=== PATIENT | female | born 1990 ===

== ENCOUNTER 2017-04-14 14:50 | Inpatient (IN) | payer BC, OTHER ==
[2017-04-14 14:50] VITALS: BMI 29.2
[2017-04-14] MEDS ORDERED: Sodium Chloride 0.9% 500 ML IV STA (15:39)
--- NOTE | 2017-04-14 15:49 | ED PDOC ---
HPI: Female Pain Time Seen by Provider: 04/14/17 15:02 Chief Complaint (Nursing): Abdominal Pain Chief Complaint (Provider): pelvic pain History Per: Patient Onset/Duration Of Symptoms: Days (3), Persistent Severity: Severe Associated Symptoms: Nausea. denies: Fever, Chills, Vomiting, Diarrhea, Loss Of Appetite, Urinary Symptoms Additional Complaint(s): Severe pelvic pain no relief with percocet at home Seen in another ER and diagnosed with ovarian cyst Seen by Se[employer]er today and advised to go to ER for further evaluation. 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 Past Medical History Reviewed: Historical Data, Nursing Documentation, Vital Signs Vital Signs: Last Vital Signs Temp 97.0 F L 04/14/17 14:55 Pulse 69 04/14/17 14:55 Resp 18 04/14/17 14:55 BP 117/70 04/14/17 14:55 Pulse Ox 99 04/14/17 14:55 - Medical History PMH: Denies: Anxiety, Bipolar Disorder, Depression, Paranoia, Post Traumatic Stress Disorder, Schizophrenia - Surgical History Surgical History: Tonsillectomy Other surgeries: Ovarian cyst - Family History Family History: States: No Known Family Hx - Social History Current smoker - smoking cessation education provided: No - Home Medications Home Medications: Ambulatory Orders Medication Instructions Recorded Cyanocobalamin [Vitamin B12 1000 1 tab PO DAILY 04/14/17 mcg Tab] Lactobacillus Combination No.8 1 cap PO DAILY 04/14/17 [Adult Probiotic] Norethindrone-E.estradiol-Iron 1 tab PO DAILY 04/14/17 [Mibelas 24 Fe Chewable Tablet] Ondansetron [Zofran Tab] 4 mg PO Q8H PRN 04/14/17 oxyCODONE/Acetaminophen [Percocet 1 tab PO Q6H PRN 04/14/17 5/325 mg Tab] - Allergies Allergies/Adverse Reactions: Allergies Allergy/AdvReac Type Severity Reaction Status Date / Time No Known Allergies Allergy Verified 02/05/15 13:43 Review of Systems ROS Statement: Except As Marked, All Systems Reviewed And Found Negative (and as per HPI) Gastrointestinal: Positive for: Nausea, Abdominal Pain Genitourinary Female: Positive for: Pelvic Pain. Negative for: Dysuria, Frequency Physical Exam - Reviewed Nursing Documentation Reviewed: Yes Vital Signs Reviewed: Yes - Physical Exam Appears: Positive for: Non-toxic, In Acute Distress Head Exam: Positive for: ATRAUMATIC, NORMOCEPHALIC Skin: Positive for: Warm, Dry Eye Exam: Positive for: EOMI, PERRL ENT: Positive for: Other (tacky muc membranes) Neck: Positive for: Painless ROM, Supple Cardiovascular/Chest: Positive for: Regular Rate, Rhythm, Chest Non Tender. Negative for: Murmur Respiratory: Positive for: Normal Breath Sounds. Negative for: Respiratory Distress Gastrointestinal/Abdominal: Positive for: Soft, Tenderness. Negative for: Distended, Guarding, Rebound Back: Positive for: Normal Inspection. Negative for: Vertebral Tenderness Extremity: Positive for: Normal ROM. Negative for: Deformity Lymphatic: Negative for: Adenopathy Neurologic/Psych: Positive for: Alert. Negative for: Motor/Sensory Deficits - Laboratory Results Result Diagrams: 04/14/17 15:55 04/14/17 15:55 Interpretation Of Abn Labs: No emergently significant lab abnormalities - ECG ECG: Positive for: Interpreted By Ri ECG Rhythm: Positive for: Normal QRS, Normal ST Segment, Sinus Rhythm O2 Sat by Pulse Oximetry: 99 Pulse Ox Interpretation: Normal - Radiology X-Ray: Interpreted by Me X-Ray Interpretation: No Acute Disease Disposition - Clinical Impression Clinical Impression: Intractable abdominal pain, Ovarian cyst - Disposition Disposition Time: 15:30 Condition: GOOD - Pt Status Changed To: Hospital Disposition Of: Observation - POA Present On Arrival: None
[2017-04-14 16:04] LABS: BASO # 0.1 K/uL (0.0-0.2); BASO % 0.7 % (0.0-2.0); EOS # 0.1 K/uL (0.0-0.7); EOS % 1.6 % (0.0-4.0); HEMATOCRIT 37.5 % (34.0-47.0); LYMPH # 3.2 K/uL (1.0-4.3); LYMPH % 35.4 % (20.0-40.0); MEAN CELL VOLUME 90.7 fl (81.0-99.0); MEAN CORPUSCULAR HGB CONC 34.1 g/dL (33.0-37.0); MONO # 0.6 K/uL (0.0-0.8); MONO % 7.3 % (0.0-10.0); NEUT # 4.9 K/uL (1.8-7.0); NRBC % 0.1 % (0.0-0.0); RED CELL DISTRIBUTION WIDTH 13.4 % (11.5-14.5)
[2017-04-14 16:13] LABS: ALB/GLOB RATIO 1.3 (1.0-2.1); ALKALINE PHOSPHATASE 47 U/L (38-126); ALT/SGPT 42 U/L (9-52); AST/SGOT 31 U/L (14-36); BILIRUBIN,TOTAL 0.4 mg/dl (0.2-1.3); BLOOD UREA NITROGEN 12 mg/dl (7-17); CALCIUM 9.3 mg/dL (8.4-10.2); CARBON DIOXIDE 25 mmol/L (22-30); CHLORIDE 105 mmol/L (98-107); GFR AFRICAN-AMERICAN > 60; GLUCOSE,RANDOM 100 mg/dL (65-105); POTASSIUM 4.3 MMOL/L (3.6-5.0); SODIUM 137 mmol/l (132-148); TOTAL PROTEIN 6.8 G/DL (6.3-8.2)
[2017-04-14 16:18] LABS: PARTIAL THROMBOPLASTIN TIME 30.1 Seconds (25.6-37.1)
[2017-04-14] MEDS ORDERED: Propofol 10 mg/ml Inj (20 ML) ONE (17:30)
--- NOTE | 2017-04-14 17:44 | RAD ---
HISTORY: for OR COMPARISON: No prior. FINDINGS: LUNGS: No active pulmonary disease. PLEURA: No significant pleural effusion identified, no pneumothorax apparent. CARDIOVASCULAR: Normal. OSSEOUS STRUCTURES: No significant abnormalities. VISUALIZED UPPER ABDOMEN: Normal. OTHER FINDINGS: None. IMPRESSION: No acute cardiopulmonary is appreciated.
[2017-04-14] MEDS ORDERED: Succinylcholine 200 mg/10 ml Inj IV ONE (17:48)
[2017-04-14] MEDS ORDERED: Lidocaine 1% Inj (20ml) ONE (20:02)
[2017-04-14] MEDS ORDERED: Bupivacaine 0.5% Inj(30mL) ONE (20:02)
[2017-04-14] MEDS ORDERED: Rocuronium 10 mg/ml (5 ml) ONE (20:04)
[2017-04-14] MEDS ORDERED: Lidocaine 4% (Laryng-O-Jet) Kit MM ONE (20:04)
[2017-04-14] MEDS ORDERED: Midazolam 2 MG/2 ML VIAL ONE (20:04)
[2017-04-14 20:05] LABS: RBC URINE 1 /hpf (0-3); URINE BILIRUBIN NEGATIVE (NEGATIVE); URINE BLOOD NEGATIVE (NEGATIVE); URINE COLOR YELLOW (YELLOW); URINE GLUCOSE (UA) NEG (Normal); URINE KETONE NEGATIVE (NEGATIVE); URINE LEUKOCYTE ESTERASE NEG Leu/uL (Negative); URINE PROTEIN NEGATIVE (NEGATIVE); URINE UROBILINOGEN 0.2-1.0 mg/dL (0.2-1.0); WBC URINE < 1 /hpf (0-5)
--- NOTE | 2017-04-14 20:16 | CP.PCM.HP ---
History of Present Illness - History of Present Illness History of Present Illness: 27 y/o Female with past surgical history of left ovarian cyst removal, seen at pre-op for scheduled laparoscopic ovarian cysts removal. Pt is complaining of 8/10 pelvic and lower back pain, which gets worse with activities. pt is taking percocet for pain. U/S done yesterday at [facility] showed 3 cysts, 2 on right and 1 on left, possibly ruptured right cyst. Patient was seen by Dr. Serrano today in office and sent to ED. pt admits feeling nauseated and headache, no vomiting. pt denies chest pain, SOB or dysuria or fever. 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 Serrano PMH: none PSH: as per HPI and tonsillectomy POBGYN: one miscarriage Allg: none Meds: none SH: no alcohol, smoking or illicit drug use FH: unknown to pt Review of Systems - Review of Systems Review of Systems: As per HPI Past Patient History - Infectious Disease Hx of Infectious Diseases: None - Tetanus Immunizations Tetanus Immunization: Unknown - Past Medical History & Family History Past Medical History?: No - Past Social History Smoking Status: Never Smoked - GENITOURINARY/GYNECOLOGICAL Hx Genitourinary Disorders: Yes (ovarian cyst) - PSYCHIATRIC Hx Anxiety: No Hx Bipolar Disorder: No Hx Depression: No Hx Paranoia: No Hx Post Traumatic Stress Disorder: No Hx Schizophrenia: No - SURGICAL HISTORY Hx Tonsillectomy: Yes - ANESTHESIA Hx Anesthesia: Yes Hx Anesthesia Reactions: No Hx Malignant Hyperthermia: No Meds Allergies/Adverse Reactions: Allergies Allergy/AdvReac Type Severity Reaction Status Date / Time No Known Allergies Allergy Verified 02/05/15 13:43 Physical Exam - Constitutional Appears: Non-toxic, No Acute Distress - Head Exam Head Exam: ATRAUMATIC, NORMAL INSPECTION, NORMOCEPHALIC - Eye Exam Eye Exam: EOMI Pupil Exam: PERRL - Neck Exam Neck exam: Positive for: Full Rom. Negative for: Lymphadenopathy - Respiratory Exam Respiratory Exam: Clear to Auscultation Bilateral, NORMAL BREATHING PATTERN. absent: Accessory Muscle Use, Chest Wall Tenderness - Cardiovascular Exam Cardiovascular Exam: REGULAR RHYTHM, +S1, +S2 - GI/Abdominal Exam GI & Abdominal Exam: Normal Bowel Sounds, Soft, Tenderness. absent: Distended - Extremities Exam Extremities exam: Negative for: calf tenderness, joint swelling, pedal edema - Back Exam Back exam: absent: CVA tenderness (L), CVA tenderness (R) - Neurological Exam Neurological exam: Alert, Oriented x3 - Psychiatric Exam Psychiatric exam: Normal Mood - Skin Skin Exam: Dry, Intact, Normal Color Results - Vital Signs Recent Vital Signs: Last Vital Signs Temp 97.0 F L 04/14/17 16:51 Pulse 69 04/14/17 16:51 Resp 18 04/14/17 16:51 BP 117/70 04/14/17 16:51 Pulse Ox 99 04/14/17 17:00 - Labs Result Diagrams: 04/14/17 15:55 04/14/17 15:55 Labs: Laboratory Results - last 24 hr 04/14/17 04/14/17 04/14/17 15:55 15:55 15:55 WBC 9.0 RBC 4.13 Hgb 12.8 Hct 37.5 MCV 90.7 MCH 31.0 MCHC 34.1 RDW 13.4 Plt Count 238 MPV 10.0 Neut % (Auto) 55.0 Lymph % (Auto) 35.4 [place] % (Auto) 7.3 Eos % (Auto) 1.6 Baso % (Auto) 0.7 Neut # 4.9 Lymph # 3.2 [place] # 0.6 Eos # 0.1 Baso # 0.1 PT 10.7 INR 1.0 APTT 30.1 Sodium 137 Potassium 4.3 Chloride 105 Carbon Dioxide 25 Anion Gap 12 BUN 12 Creatinine 0.8 Est GFR ( Amer) > 60 Est GFR (Non-Af Amer) > 60 Random Glucose 100 Calcium 9.3 Total Bilirubin 0.4 AST 31 ALT 42 Alkaline Phosphatase 47 Total Protein 6.8 Albumin 3.9 Globulin 2.9 Albumin/Globulin Ratio 1.3 Blood Type Antibody Screen BBK History Checked 04/14/17 16:30 WBC RBC Hgb Hct MCV MCH MCHC RDW Plt Count MPV Neut % (Auto) Lymph % (Auto) [place] % (Auto) Eos % (Auto) Baso % (Auto) Neut # Lymph # [place] # Eos # Baso # PT INR APTT Sodium Potassium Chloride Carbon Dioxide Anion Gap BUN Creatinine Est GFR ( Amer) Est GFR (Non-Af Amer) Random Glucose Calcium Total Bilirubin AST ALT Alkaline Phosphatase Total Protein Albumin Globulin Albumin/Globulin Ratio Blood Type O POSITIVE Antibody Screen Negative BBK History Checked No verified bt Assessment & Plan - Assessment and Plan (Free Text) Assessment: A/P: 27 y/o Female with past surgical history of left ovarian cyst removal, seen at pre-op for scheduled laparoscopic ovarian cysts removal. -laparoscopic ovarian cysts removal - pt is ready for OR Case discussed with Dr. Serrano
--- NOTE | 2017-04-14 20:22 | CP.PCM.HP ---
History of Present Illness - History of Present Illness History of Present Illness: 27yo female with acute abdominal pain. Pt seen in ED last night and diagnosed with ovarian cyst on right ~6-7cm c/w dermoid cyst. Pt discharged from ED yesterday, but pt reports pain worsened today. Seen in office today and transferred to ED due to 8-9/10 pain. Discussed with patient options including expctant management, medical management of symptoms and surgical management. Pt opting for surgical management. Discussed the R/B/A of surgery with aptient and all patient questions answered. Present on Admission - Present on Admission Any Indicators Present on Admission: No History of DVT/PE: No History of Uncontrolled Diabetes: No Urinary Catheter: No Decubitus Ulcer Present: No Past Patient History - Infectious Disease Hx of Infectious Diseases: None - Tetanus Immunizations Tetanus Immunization: Unknown - Past Medical History & Family History Past Medical History?: No - Past Social History Smoking Status: Never Smoked - MUSCULOSKELETAL/RHEUMATOLOGICAL Hx Falls: No - GENITOURINARY/GYNECOLOGICAL Hx Genitourinary Disorders: Yes (ovarian cyst) - PSYCHIATRIC Hx Anxiety: No Hx Bipolar Disorder: No Hx Depression: No Hx Paranoia: No Hx Post Traumatic Stress Disorder: No Hx Schizophrenia: No - SURGICAL HISTORY Hx Tonsillectomy: Yes - ANESTHESIA Hx Anesthesia: Yes Hx Anesthesia Reactions: No Hx Malignant Hyperthermia: No Meds Allergies/Adverse Reactions: Allergies Allergy/AdvReac Type Severity Reaction Status Date / Time No Known Allergies Allergy Verified 02/05/15 13:43 Physical Exam - Constitutional Appears: In Acute Distress - Head Exam Head Exam: ATRAUMATIC - Eye Exam Eye Exam: Normal appearance, PERRL - ENT Exam ENT Exam: Mucous Membranes Moist - Neck Exam Neck exam: Positive for: Normal Inspection - Respiratory Exam Respiratory Exam: Clear to Auscultation Bilateral, NORMAL BREATHING PATTERN - Cardiovascular Exam Cardiovascular Exam: REGULAR RHYTHM - GI/Abdominal Exam Additional comments: Soft, ND, +diffuse lower abd tenderness. +gaurding and +mild rebound. Normal BS Results - Vital Signs Recent Vital Signs: Last Vital Signs Temp 97.0 F L 04/14/17 16:51 Pulse 69 04/14/17 16:51 Resp 18 04/14/17 16:51 BP 117/70 04/14/17 16:51 Pulse Ox 99 04/14/17 17:00 - Labs Result Diagrams: 04/14/17 15:55 04/14/17 15:55 Labs: Laboratory Results - last 24 hr 04/14/17 04/14/17 04/14/17 15:55 15:55 15:55 WBC 9.0 RBC 4.13 Hgb 12.8 Hct 37.5 MCV 90.7 MCH 31.0 MCHC 34.1 RDW 13.4 Plt Count 238 MPV 10.0 Neut % (Auto) 55.0 Lymph % (Auto) 35.4 [place] % (Auto) 7.3 Eos % (Auto) 1.6 Baso % (Auto) 0.7 Neut # 4.9 Lymph # 3.2 [place] # 0.6 Eos # 0.1 Baso # 0.1 PT 10.7 INR 1.0 APTT 30.1 Sodium 137 Potassium 4.3 Chloride 105 Carbon Dioxide 25 Anion Gap 12 BUN 12 Creatinine 0.8 Est GFR ( Amer) > 60 Est GFR (Non-Af Amer) > 60 Random Glucose 100 Calcium 9.3 Total Bilirubin 0.4 AST 31 ALT 42 Alkaline Phosphatase 47 Total Protein 6.8 Albumin 3.9 Globulin 2.9 Albumin/Globulin Ratio 1.3 Blood Type Antibody Screen BBK History Checked 04/14/17 16:30 WBC RBC Hgb Hct MCV MCH MCHC RDW Plt Count MPV Neut % (Auto) Lymph % (Auto) [place] % (Auto) Eos % (Auto) Baso % (Auto) Neut # Lymph # [place] # Eos # Baso # PT INR APTT Sodium Potassium Chloride Carbon Dioxide Anion Gap BUN Creatinine Est GFR ( Amer) Est GFR (Non-Af Amer) Random Glucose Calcium Total Bilirubin AST ALT Alkaline Phosphatase Total Protein Albumin Globulin Albumin/Globulin Ratio Blood Type O POSITIVE Antibody Screen Negative BBK History Checked No verified bt - Imaging and Cardiology US - abdomen Status: Report reviewed by me Assessment & Plan - Assessment and Plan (Free Text) Assessment: Acute abdominal pain, Ovarian cyst c/w dermoid Plan: Pt consented for laparoscopy, possible laparotomy, ovarian cystectomy, removal of ovary only if absolutely necessary. Routine postop observation and care - Date & Time Date: 04/14/17 Time: 20:25
[2017-04-14] MEDS ORDERED: Sodium Chloride 0.9% 1,000 ML IV ONE (20:25)
[2017-04-14] MEDS ORDERED: Dexamethasone 4 mg/1 ml ONE (20:51)
[2017-04-14] MEDS ORDERED: Sodium Chloride 0.9% 500 ML IV ONE (21:35)
[2017-04-14] MEDS ORDERED: Neostigmine Methylsulfate 3mg/3ml Syringe IV ONE (21:40)
[2017-04-14] MEDS ORDERED: HYDROmorphone 0.5 mg/0.5 ml ISec IVP PRN (22:15)
--- NOTE | 2017-04-14 22:15 | PCM.SURG1 ---
Surgeon's Initial Post Op Note - Surgeon's Notes Surgeon: Zach Jacquard Loom Weaver: Argelia Type of Anesthesia: General Endo Anesthesia Administered By: Pedro Pre-Operative Diagnosis: Ovarian cyst, acute abdominal pain Operative Findings: Right ovarian cyst ~6-7cm c/w dermoid cyst, Right adnexa torsed x 2 with edema and necrosis of Right ovary and tube. left ovary with 3- 4cm simple cyst and adhesions to pelvic sidewall. Normal uterus. Post-Operative Diagnosis: Right ovarian dermoid cyst, right adnexal torsion, left ovarian simple cyst, moderate pelvic adhesions Operation Performed: Laparoscopy, RSO, aspiration of left ovarian cyst, DEE Specimen/Specimens Removed: Right adexa, ovarian cyst fluid Estimated Blood Loss: EBL {In ML}: 100 Blood Products Given: N/A Drains Used: No Drains Post-Op Condition: Good Date of Surgery/Procedure: 04/14/17 Time of Surgery/Procedure: 22:17
[2017-04-15] MEDS: Oxycodone/Acetaminophen 5/325 mg Tab PO PRN ×2 (06:20→11:52)
[2017-04-15] MEDS: Lactated Ringer's 1,000 ML IV SCH ×2 (06:22→06:23)
--- NOTE | 2017-04-15 07:14 | CP.PCM.PN ---
Subjective - Date & Time of Evaluation Date of Evaluation: 04/15/17 Time of Evaluation: 06:00 - Subjective Subjective: OBGYN note. 27 y/o F, POD#1, s/p Laparoscopic Right Salpingo-oophorectomy and aspiration of left ovarian cyst, DEE. pt was seen and examined this morning. pt is c/o abdo pain and unable to Urinate. pt admits nausea, no vimoting, fever, chills. no BM , SOB or chest pain. Objective - Vital Signs/Intake and Output Vital Signs (last 24 hours): Temp Pulse Resp BP Pulse Ox 98.7 F 53 L 18 100/58 L 97 04/15/17 00:46 04/15/17 00:46 04/15/17 00:46 04/15/17 00:46 04/15/17 00:46 - Medications Medications: Current Medications Lactated Ringer's (Lactated Ringer's) 1,000 mls @ 125 mls/hr IV .Q8H PATRICIA Last Admin: 04/15/17 06:23 Dose: Not Given Ibuprofen (Motrin Tab) 600 mg PO Q6 PRN PRN Reason: Pain, moderate (4-7) Ondansetron HCl (Zofran Inj) 4 mg IVP Q4 PRN PRN Reason: Nausea/Vomiting Oxycodone/Acetaminophen (Percocet 5/325 Mg Tab) 2 tab PO Q4 PRN PRN Reason: Pain, severe (8-10) Stop: 04/17/17 22:19 Last Admin: 04/15/17 06:20 Dose: 2 tab - Labs Labs: PT 10.7 Seconds (9.8-13.1) 04/14/17 15:55 INR 1.0 (0.9-1.2) 04/14/17 15:55 APTT 30.1 Seconds (25.6-37.1) 04/14/17 15:55 - Constitutional Appears: Non-toxic - Head Exam Head Exam: ATRAUMATIC, NORMAL INSPECTION, NORMOCEPHALIC - Eye Exam Eye Exam: EOMI, PERRL Pupil Exam: PERRL - ENT Exam ENT Exam: Mucous Membranes Moist - Neck Exam Neck Exam: Full ROM. absent: Lymphadenopathy - Respiratory Exam Respiratory Exam: Clear to Ausculation Bilateral, NORMAL BREATHING PATTERN - Cardiovascular Exam Cardiovascular Exam: REGULAR RHYTHM, +S1, +S2 - GI/Abdominal Exam GI & Abdominal Exam: Tenderness, Hypoactive Bowel Sounds Additional comments: incision sites are covered - Extremities Exam Extremities Exam: absent: Calf Tenderness - Neurological Exam Neurological Exam: Alert, Awake, Oriented x3 - Skin Skin Exam: Dry, Intact, Normal Color Assessment and Plan - Assessment and Plan (Free Text) Assessment: A/P: 27 y/o F, POD#1, s/p Laparoscopic Right Salpingo-oophorectomy and aspiration of left ovarian cyst, DEE. c/o pain and unable to Urinate - Afebrile, Stable VS - Bladder scan was done this morning, full bladder - urinary straight catheterization was ordered - Continue pain management - encourage ambulation - SCD for DVT ppx - Will assess and re-examine pt Case discussed with Dr. Stout --- Paddy Dockery, PGY-1
[2017-04-15 08:29] VITALS: BP 98/59; PULSE 50; RESP 20; TEMP 98.4; O2SAT 97
--- NOTE | 2017-04-15 11:51 | CP.PCM.PN ---
Subjective - Date & Time of Evaluation Date of Evaluation: 04/15/17 Time of Evaluation: 11:49 - Subjective Subjective: pt without complaints. Pain well controlled. Ambulating well. Tolerating regular diet. Voiding well. Objective - Vital Signs/Intake and Output Vital Signs (last 24 hours): Temp Pulse Resp BP Pulse Ox 98.4 F 50 L 20 98/59 L 97 04/15/17 08:28 04/15/17 08:28 04/15/17 08:28 04/15/17 08:28 04/15/17 08:28 Intake and Output: 04/15/17 04/15/17 06:59 18:59 Intake Total 100 Output Total 250 Balance -150 - Medications Medications: Current Medications Lactated Ringer's (Lactated Ringer's) 1,000 mls @ 125 mls/hr IV .Q8H PATRICIA Last Admin: 04/15/17 06:23 Dose: Not Given Ibuprofen (Motrin Tab) 600 mg PO Q6 PRN PRN Reason: Pain, moderate (4-7) Ondansetron HCl (Zofran Inj) 4 mg IVP Q4 PRN PRN Reason: Nausea/Vomiting Oxycodone/Acetaminophen (Percocet 5/325 Mg Tab) 2 tab PO Q4 PRN PRN Reason: Pain, severe (8-10) Stop: 04/17/17 22:19 Last Admin: 04/15/17 06:20 Dose: 2 tab - Labs Labs: PT 10.7 Seconds (9.8-13.1) 04/14/17 15:55 INR 1.0 (0.9-1.2) 04/14/17 15:55 APTT 30.1 Seconds (25.6-37.1) 04/14/17 15:55 - Constitutional Appears: Well, No Acute Distress - Head Exam Head Exam: ATRAUMATIC - Eye Exam Eye Exam: Normal appearance, PERRL - ENT Exam ENT Exam: Mucous Membranes Moist - Respiratory Exam Respiratory Exam: Clear to Ausculation Bilateral, NORMAL BREATHING PATTERN - Cardiovascular Exam Cardiovascular Exam: REGULAR RHYTHM - GI/Abdominal Exam Additional comments: Soft/NT/ND. Port site inc C/D/I x 3 - Extremities Exam Extremities Exam: Normal Inspection. absent: Calf Tenderness Assessment and Plan - Assessment and Plan (Free Text) Assessment: POD#1 s/p laparoscopic RSO -- recovering well Plan: D/C home with postop instructions F/U 1 week in office
--- NOTE | 2017-04-15 11:52 | CP.PCM.DIS ---
Provider - Provider Date of Admission: 04/14/17 22:18 Attending physician: Abran Serrano MD Time Spent in preparation of Discharge (in minutes): 15 Diagnosis - Discharge Diagnosis (1) Acute abdominal pain Status: Acute (2) Ovarian torsion Status: Acute (3) Dermoid cyst Status: Acute Hospital Course - Lab Results Lab Results: Most Recent Lab Values WBC 9.0 K/uL (4.8-10.8) 04/14/17 15:55 RBC 4.13 Mil/uL (3.80-5.20) 04/14/17 15:55 Hgb 12.8 g/dL (12.0-16.0) 04/14/17 15:55 Hct 37.5 % (34.0-47.0) 04/14/17 15:55 MCV 90.7 fl (81.0-99.0) 04/14/17 15:55 MCH 31.0 pg (27.0-31.0) 04/14/17 15:55 MCHC 34.1 g/dL (33.0-37.0) 04/14/17 15:55 RDW 13.4 % (11.5-14.5) 04/14/17 15:55 Plt Count 238 K/uL (130-400) 04/14/17 15:55 MPV 10.0 fl (7.2-11.7) 04/14/17 15:55 Neut % (Auto) 55.0 % (50.0-75.0) 04/14/17 15:55 Lymph % (Auto) 35.4 % (20.0-40.0) 04/14/17 15:55 [place] % (Auto) 7.3 % (0.0-10.0) 04/14/17 15:55 Eos % (Auto) 1.6 % (0.0-4.0) 04/14/17 15:55 Baso % (Auto) 0.7 % (0.0-2.0) 04/14/17 15:55 Neut # 4.9 K/uL (1.8-7.0) 04/14/17 15:55 Lymph # 3.2 K/uL (1.0-4.3) 04/14/17 15:55 [place] # 0.6 K/uL (0.0-0.8) 04/14/17 15:55 Eos # 0.1 K/uL (0.0-0.7) 04/14/17 15:55 Baso # 0.1 K/uL (0.0-0.2) 04/14/17 15:55 PT 10.7 Seconds (9.8-13.1) 04/14/17 15:55 INR 1.0 (0.9-1.2) 04/14/17 15:55 APTT 30.1 Seconds (25.6-37.1) 04/14/17 15:55 Sodium 137 mmol/l (132-148) 04/14/17 15:55 Potassium 4.3 MMOL/L (3.6-5.0) 04/14/17 15:55 Chloride 105 mmol/L (98-107) 04/14/17 15:55 Carbon Dioxide 25 mmol/L (22-30) 04/14/17 15:55 Anion Gap 12 (10-20) 04/14/17 15:55 BUN 12 mg/dl (7-17) 04/14/17 15:55 Creatinine 0.8 mg/dL (0.7-1.2) 04/14/17 15:55 Est GFR ( Amer) > 60 04/14/17 15:55 Est GFR (Non-Af Amer) > 60 04/14/17 15:55 Random Glucose 100 mg/dL (65-105) 04/14/17 15:55 Calcium 9.3 mg/dL (8.4-10.2) 04/14/17 15:55 Total Bilirubin 0.4 mg/dl (0.2-1.3) 04/14/17 15:55 AST 31 U/L (14-36) 04/14/17 15:55 ALT 42 U/L (9-52) 04/14/17 15:55 Alkaline Phosphatase 47 U/L (38-126) 04/14/17 15:55 Total Protein 6.8 G/DL (6.3-8.2) 04/14/17 15:55 Albumin 3.9 g/dL (3.5-5.0) 04/14/17 15:55 Globulin 2.9 gm/dL (2.2-3.9) 04/14/17 15:55 Albumin/Globulin Ratio 1.3 (1.0-2.1) 04/14/17 15:55 Urine Color Yellow (YELLOW) 04/14/17 19:52 Urine Clarity Clear (Clear) 04/14/17 19:52 Urine pH 5.0 (5.0-8.0) 04/14/17 19:52 Ur Specific [place] 1.015 (1.003-1.030) 04/14/17 19:52 Urine Protein Negative mg/dL (NEGATIVE) 04/14/17 19:52 Urine Glucose (UA) Neg mg/dL (Normal) 04/14/17 19:52 Urine Ketones Negative mg/dL (NEGATIVE) 04/14/17 19:52 Urine Blood Negative (NEGATIVE) 04/14/17 19:52 Urine Nitrate Negative (NEGATIVE) 04/14/17 19:52 Urine Bilirubin Negative (NEGATIVE) 04/14/17 19:52 Urine Urobilinogen 0.2-1.0 mg/dL (0.2-1.0) 04/14/17 19:52 Ur Leukocyte Esterase Neg [place]/uL (Negative) 04/14/17 19:52 Urine RBC (Auto) 1 /hpf (0-3) 04/14/17 19:52 Urine Microscopic WBC < 1 /hpf (0-5) 04/14/17 19:52 Ur Squamous Epith Cells < 1 /hpf (0-5) 04/14/17 19:52 Blood Type O POSITIVE 04/14/17 16:30 Blood Type Confirm O POSITIVE 04/14/17 19:22 Antibody Screen Negative 04/14/17 16:30 BBK History Checked No verified bt 04/14/17 16:30 - Date & Time of H&P Date of H&P: 04/14/17 Time of H&P: 20:20 Discharge Exam - Head Exam Head Exam: ATRAUMATIC Discharge Plan - Follow Up Plan Condition: GOOD Disposition: HOME/ ROUTINE Instructions: Laparoscopic Excision of Ovarian Cysts (DC) Referrals: Abran Serrano MD [Staff Provider] -
--- NOTE | 2017-04-15 23:43 | CARD ---
APPROVED REPORT EKG Measurement Heart [id number] <Conclusion> Marked sinus bradycardia Low voltage QRS Nonspecific ST abnormality Abnormal ECG
--- NOTE | 2017-04-15 23:57 | OP ---
PROCEDURE DATE: 04/14/2017 PREOPERATIVE DIAGNOSES: Ovarian cyst, acute abdominal pain. POSTOPERATIVE DIAGNOSES: Right ovarian dermoid cyst, right adnexal torsion with necrosis and edema, left ovarian simple cyst, moderate pelvic adhesions. PROCEDURE: Laparoscopy, right salpingo-oophorectomy, aspiration of left ovarian cyst, lysis of adhesions. SURGEON: Dr. Serrano. BOATING SAFETY OFFICER: Dr. Jose Stout. Dr. Stout was present from the beginning of the procedure to the end of procedure, Dr. Stout was integral in exposing the surgical field, removing intraabdominal and pelvic adhesions and surgical removal of specimen. TYPE OF ANESTHESIA: General. ANESTHESIA ADMINISTERED BY: Dr. Vasquez. IV FLUID INTAKE: 1400 mL of lactated Ringer's. ESTIMATED BLOOD LOSS: 100 mL URINE OUTPUT: 300 mL of clear urine at the end of the procedure. COMPLICATIONS: None. DESCRIPTION OF PROCEDURE: The patient was taken to the operating room, where general anesthesia was found to be adequate. The patient was prepped and draped in normal sterile fashion in the dorsal lithotomy position. A weighted speculum was placed at the posterior aspect of the vagina. A Chavez retractor was placed at the anterior surface of the vagina. The anterior surface of the cervix was grasped with a single tooth tenaculum. The cervix was dilated with Thorne dilator to a size of 20-Maori. A Humi uterine manipulator was placed through the cervix into the uterine cavity. All instruments were removed from the vagina. Attention was then turned to the abdomen. Approximately 5 mm incision was placed at the umbilicus. The Veress needle was placed through the umbilical incision into the abdominal cavity. After proper placement ensured, the abdominal cavity was inflated with CO2 gas to a pressure of 15 mmHg. The Veress needle was removed from the abdomen. A 5 mm trocar was placed through the umbilical port site into the abdominal cavity. The laparoscope was placed through the umbilical port site. The abdomen and pelvis were explored and the above findings noted. An 11 mm accessory port was placed on the right under direct visualization. A 5 mm accessory port site was placed on the left under direct visualization. Due to extensive necrosis and edema of the right adnexa, decision made for removal of right adnexa. The right adnexa was isolated and elevated. Using LigaSure device, the right adnexa was electrocauterized and transected in multiple passes. The infundibulopelvic ligament as well as the suspensory ligament of the ovary and fallopian tubes were transected. After removal, reinspection of the surgical pedicle proved hemostasis. Approximately 3 to 4 simple cyst on the left ovary was aspirated. The specimen was removed from the right accessory port site under correct visualization. Adhesions from left ovary to pelvic side wall were reduced with LigaSure device under direct visualization. After removal of these adhesions, reinspection of the area proved hemostasis. After removal of the specimen, the abdomen and pelvis were irrigated with copious amounts of warm normal saline. Reinspection of all surgical sites proved hemostasis. All instruments were removed from the patient. The fascial layer at the 11 mm port site was closed with a [id number] stitch of 0 Vicryl. Subcutaneous tissue was closed at each port site with interrupted sutures of 3-0 plain. The skin at each port site was closed with Dermabond. The patient tolerated the procedure well. All sponge, lap, and needle counts were correct x2. There were no complications. The patient was taken to recovery room in awake and stable condition. Abran Serrano MD
== END 2017-04-15 13:04 | disposition home or self-care (01) | DRG 742 ==
LOC: H.ER 14:50 → H.ERHOLD 15:39 → H.MEDSURG1 17:07 → OBSVTOIN 22:18
PROVIDERS: ADMIT Obstetrics & Gynecology; ATTEND Obstetrics & Gynecology
PROC: 0UT04ZZ Resection of Right Ovary, Percutaneous Endoscopic Approach (ICD-10-PCS; 2017-04-14)
PROC: 0U914ZZ Drainage of Left Ovary, Percutaneous Endoscopic Approach (ICD-10-PCS; 2017-04-14)
PROC: 0UT54ZZ Resection of Right Fallopian Tube, Percutaneous Endoscopic Approach (ICD-10-PCS; principal; 2017-04-14 20:00)
DX: D27.0 Benign neoplasm of right ovary (principal); N83.511 Torsion of right ovary and ovarian pedicle; N70.93 Salpingitis and oophoritis, unspecified; N83.292 Other ovarian cyst, left side

== ENCOUNTER 2017-05-09 14:48 | Observation (INO) | payer BC ==
[2017-05-09 14:49] VITALS: BMI 29.2
[2017-05-09] MEDS ORDERED: Lactated Ringer's 1,000 ML IV STA (15:28)
--- NOTE | 2017-05-09 15:32 | ED PDOC ---
HPI: Abdomen Time Seen by Provider: 05/09/17 14:59 Chief Complaint (Nursing): Abdominal Pain Chief Complaint (Provider): RLQ pain History Per: Patient History/Exam Limitations: no limitations Onset/Duration Of Symptoms: Days (1), Persistent Location Of Pain/Discomfort: RLQ (radiating to RUQ, epigastric area, and LLQ) Quality Of Discomfort: Sharp Associated Symptoms: Urinary Symptoms (pressurelike). denies: Fever, Chills, Nausea, Vomiting, Diarrhea, Loss Of Appetite Exacerbating Factors: Upright Position Alleviating Factors: None Additional Complaint(s): Mild pain Friday, suddenly severe on Friday when getting out of car. Took ibuprofen with minimal relief. Pain worsening since then, radiating to RUQ/epig and LLQ, and worse with walking. 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: Dr Serrano Past Medical History Reviewed: Historical Data, Nursing Documentation, Vital Signs Vital Signs: Last Vital Signs Temp 98.2 F 05/09/17 20:44 Pulse 58 L 05/09/17 20:44 Resp 18 05/09/17 20:44 BP 108/61 05/09/17 20:44 Pulse Ox 99 05/09/17 20:44 - Medical History PMH: Denies: Anxiety, Bipolar Disorder, Depression, Paranoia, Post Traumatic Stress Disorder, Schizophrenia - Surgical History Surgical History: Tonsillectomy Other surgeries: Ovarian cyst removal and torsion correction - Family History Family History: States: No Known Family Hx - Social History Current smoker - smoking cessation education provided: No - Home Medications Home Medications: Ambulatory Orders Medication Instructions Recorded Cyanocobalamin [Vitamin B12 1000 1 tab PO DAILY 04/14/17 mcg Tab] Lactobacillus Combination No.8 1 cap PO DAILY 04/14/17 [Adult Probiotic] Norethindrone-E.estradiol-Iron 1 tab PO DAILY 04/14/17 [Mibelas 24 Fe Chewable Tablet] Ondansetron [Zofran Tab] 4 mg PO Q8H PRN 04/14/17 oxyCODONE/Acetaminophen [Percocet 1 tab PO Q6H PRN 04/14/17 5/325 mg Tab] - Allergies Allergies/Adverse Reactions: Allergies Allergy/AdvReac Type Severity Reaction Status Date / Time No Known Allergies Allergy Verified 05/09/17 14:51 Review of Systems ROS Statement: Except As Marked, All Systems Reviewed And Found Negative (and as per HPI) Gastrointestinal: Positive for: Abdominal Pain. Negative for: Nausea, Vomiting , Diarrhea, Constipation, Melena, Hematochezia, Hematemesis Genitourinary Female: Positive for: Pelvic Pain. Negative for: Dysuria, Frequency, Vaginal Discharge, Vaginal Bleeding Physical Exam - Reviewed Nursing Documentation Reviewed: Yes Vital Signs Reviewed: Yes - Physical Exam Appears: Positive for: Non-toxic, In Acute Distress (mild painful) Head Exam: Positive for: ATRAUMATIC, NORMOCEPHALIC Skin: Positive for: Warm, Dry Eye Exam: Positive for: EOMI, PERRL ENT: Positive for: Other (tacky muc membranes). Negative for: Pharyngeal Erythema, Tonsillar Exudate Neck: Positive for: Painless ROM, Supple Cardiovascular/Chest: Positive for: Regular Rate, Rhythm, Chest Non Tender. Negative for: Murmur Respiratory: Positive for: Normal Breath Sounds. Negative for: Respiratory Distress Gastrointestinal/Abdominal: Positive for: Bowel Sounds, Soft, Tenderness (RLQ). Negative for: Mass, Distended, Guarding, Rebound Back: Positive for: Normal Inspection. Negative for: L CVA Tenderness, R CVA Tenderness Extremity: Positive for: Normal ROM. Negative for: Deformity Lymphatic: Negative for: Adenopathy Neurologic/Psych: Positive for: Alert. Negative for: Motor/Sensory Deficits - Laboratory Results Result Diagrams: 05/09/17 15:25 05/09/17 16:00 - ECG O2 Sat by Pulse Oximetry: 98 ED OBSERVATION - Observation admission statement Patient is being placed in observation because:: Abdominal pain requiring time-intensive workup and serial abdominal exams and progression of vitals/pain by both myself and Local [employer] Driver consult. - Progress Note Progress Note: Accession No. : [id number] Patient Name / ID : BRIAN WAGNER / [id number] Exam Date : 05/09/2017 16:11:19 ( Approved ) Study Comment : Sex / Age : F / 27Y Creator : China Brandt MD Dictator : China Brandt MD Department Secretary : Scrap Stripper Hand : China Brandt MD Approver2 : Report Date : 05/09/2017 17:29:52 My Comment : HISTORY: pelvic pain r/o ovarian cyst rupture/torsion, history of right oophorectomy as per patient. COMPARISON: None available. TECHNIQUE: Transvaginal pelvic ultrasound FINDINGS: UTERUS: Measures 9.7 x 3.8 x 4.9 cm. Anteverted. ENDOMETRIUM: Measures 8 mm in diameter. CERVIX: Nabothian cysts. RIGHT OVARY: Not visualized. LEFT OVARY: Measures 5.1 x 3.0 x 5.1 cm. Blood flow is demonstrated the left ovary. Three probable ovarian cysts. 3.3 x 2.8 x 2.9 cm cyst appears complex, likely hemorrhagic. Additional 2.4 x 1.5 x 2.5 cm and 2.1 x 1.7 x 2.4 cm left ovarian cyst. FREE FLUID: Pelvic free fluid within the cul-de-sac. OTHER FINDINGS: None. IMPRESSION: The right ovary was not visualized. As per patient status post oophorectomy . At least 3 probable left ovarian cysts, the largest of which measures approximately 3.3 cm in appears complex, likely hemorrhagic. Recommend 6 week ultrasound follow-up in order to assess for complete resolution. Pelvic free fluid within the cul-de-sac. 1744 Dw pt findings. DW Dr Serrano Local [employer] Truck Driver. Dr Peña to come down and evaluated patient. Pt still has some abdominal pain on reexamination but improved (given morphine). Vitals stable. 1829 Dr Peña evaluated pt. Pt to continue to be observed in ER, PO challenge. Pt reports concern of need to return to ER for progression of pain. 2099 Pt continues to be comfortable with stable vitals and no progression of pain. Strict instructions to return to ER for worsening of pain. Dr Peña believes pt stable for discharge with f/u with Dr Serrano early next week. Pt amenable to plan of care. Disposition - Clinical Impression Clinical Impression: Ruptured ovarian cyst Counseled Patient/Family Regarding: Studies Performed, Diagnosis, Need For Followup - Disposition Disposition Time: 17:45 Condition: IMPROVED
[2017-05-09 16:19] LABS: BASO # 0.1 K/uL (0.0-0.2); BASO % 0.7 % (0.0-2.0); EOS # 0.3 K/uL (0.0-0.7); HEMATOCRIT 38.3 % (34.0-47.0); LYMPH # 3.3 K/uL (1.0-4.3); LYMPH % 36.1 % (20.0-40.0); MEAN CELL VOLUME 90.8 fl (81.0-99.0); MEAN CORPUSCULAR HEMOGLOBIN 29.8 pg (27.0-31.0); MEAN CORPUSCULAR HGB CONC 32.9 g/dL (33.0-37.0); MEAN PLATELET VOLUME 9.8 fl (7.2-11.7); MONO # 0.7 K/uL (0.0-0.8); MONO % 7.5 % (0.0-10.0); NEUT # 4.9 K/uL (1.8-7.0); NEUT % 52.7 % (50.0-75.0); NRBC % 0.1 % (0.0-0.0); RED CELL DISTRIBUTION WIDTH 13.6 % (11.5-14.5); WHITE BLOOD COUNT 9.2 K/uL (4.8-10.8)
[2017-05-09 16:35] LABS: ALB/GLOB RATIO 1.4 (1.0-2.1); ALKALINE PHOSPHATASE 59 U/L (38-126); ALT/SGPT 73 U/L (9-52); AST/SGOT 38 U/L (14-36); BILIRUBIN,TOTAL 0.3 mg/dl (0.2-1.3); BLOOD UREA NITROGEN 14 mg/dl (7-17); CALCIUM 9.3 mg/dL (8.4-10.2); CARBON DIOXIDE 26 mmol/L (22-30); CHLORIDE 104 mmol/L (98-107); GFR AFRICAN-AMERICAN > 60; GLUCOSE,RANDOM 90 mg/dL (65-105); LIPASE 132 U/L (23-300); POTASSIUM 4.2 MMOL/L (3.6-5.0); SODIUM 141 mmol/l (132-148)
--- NOTE | 2017-05-09 17:31 | US ---
HISTORY: pelvic pain r/o ovarian cyst rupture/torsion, history of right oophorectomy 04/03 as per patient. COMPARISON: None available. TECHNIQUE: Transvaginal pelvic ultrasound FINDINGS: UTERUS: Measures 9.7 x 3.8 x 4.9 cm. Anteverted. ENDOMETRIUM: Measures 8 mm in diameter. CERVIX: Nabothian cysts. RIGHT OVARY: Not visualized. LEFT OVARY: Measures 5.1 x 3.0 x 5.1 cm. Blood flow is demonstrated the left ovary. Three probable ovarian cysts. 3.3 x 2.8 x 2.9 cm cyst appears complex, likely hemorrhagic. Additional 2.4 x 1.5 x 2.5 cm and 2.1 x 1.7 x 2.4 cm left ovarian cyst. FREE FLUID: Pelvic free fluid within the cul-de-sac. OTHER FINDINGS: None. IMPRESSION: The right ovary was not visualized. As per patient status post oophorectomy 04/06/17. At least 3 probable left ovarian cysts, the largest of which measures approximately 3.3 cm in appears complex, likely hemorrhagic. Recommend 6 week ultrasound follow-up in order to assess for complete resolution. Pelvic free fluid within the cul-de-sac.
[2017-05-09 20:44] VITALS: BP 108/61; PULSE 58; RESP 18; TEMP 98.2
--- NOTE | 2017-05-10 02:10 | HP ---
HISTORY OF PRESENT ILLNESS: This is a 27-year-old G2, P1-0-1-1 with last menstrual period in August 2016 status post laparoscopic RSO on 04/14/2017 for torsed ovary due to a dermoid cyst. Patient reports that she had sudden sharp pains on the right side of her abdomen on Friday and has felt uncomfortable in her abdomen throughout the week. She reports that she was on Mibelas 24 and stopped the pill after the dermoid was removed and was waiting to have a period to restart the pill. Pt reports that she didn't have periods on the pill. PAST MEDICAL HISTORY: Healthy. PAST SURGICAL HISTORY: In 2006, she has tonsillectomy. An open left dermoid cyst removed in 2010 and in March of 2017, she had a laparoscopic RSO for a torsed ovary due to a dermoid. MEDICATIONS: None, currently. ALLERGIES: NO KNOWN DRUG ALLERGIES. FAMILY HISTORY: Maternal grandfather had diabetes. PAST OBSTETRIC HISTORY: She had a miscarriage at about 12 weeks in 2011. No D and C. She underwent vaginal delivery of a male infant weighing 7 pounds 4 ounces in February 2013. SOCIAL HISTORY: The patient denies tobacco. Reports of occasional alcohol and reports that she uses marijuana about 2 to 3 times in a year. GYNECOLOGIC HISTORY: Menarche at 9. Monthly periods, in the past. History of genital herpes, denies any abnormal pap smears. PHYSICAL EXAMINATION: VITAL SIGNS: Her vital signs are stable; at 2:51 p.m., her pulse is 70, blood pressure is 121/75 and now at 1807 hours her pulse is lower at 53 and her blood pressure is 108/64. GENERAL: The patient appears in no acute distress, lying in the stretcher. ABDOMEN: Soft, diffusely tender with palpation, but no rebound or guarding. EXTREMITIES: Nontender. LABORATORY DATA: White count is normal 9.2, hemoglobin is 12.6, and platelets are 244. Her comprehensive metabolic panel is within normal limits, although her AST is slightly elevated at 38 and her ALT is elevated at 73. Her urine test was negative per the RN. IMAGING: Pelvic ultrasound: The right ovary was not visualized as it is surgically absent. There are at least 3 probable left ovarian cysts, the largest of which measures approximately 3.3 cm. The largest cyst appears complex , likely hemorrhagic. There was free fluid within the cul-de-sac. ASSESSMENT AND PLAN: This is a 27-year-old G2, P1-0-1-1 who has had abdominal pain that started a few days ago and has been having pain in her abdomen since with hemorrhagic cyst on the left ovary and free fluid in the pelvis. The patient is to be admitted for observation overnight. The patient is concerned about her pain and is not comfortable with going home. She has received IV fluids and 2 mg of IV morphine since she has been in the ER. Addendum: Patient was re-evaluated around 9 p.m. in the ED, had not yet been transferred to her room yet. Vital signs were done and stable. Patient now felt comfortable with being discharged home and was told to follow up with her cfo controller, Dr. Tia Serrano. Leonora Peña MD MTDD
[2017-05-10 15:34] VITALS: O2SAT 98
== END 2017-05-09 21:33 | disposition home or self-care (01) ==
LOC: H.ER 14:48 → H.ERHOLD 15:42 → H.EROBSV 15:42 → H.ERHOLD 21:41
PROVIDERS: ADMIT Obstetrics & Gynecology; ATTEND Obstetrics & Gynecology
DX: N83.202 Unspecified ovarian cyst, left side (principal); F12.90 Cannabis use, unspecified, uncomplicated
CPT/HCPCS: 76830; 80053; 81025; 83690; 85025; 86850; 86900; 96366; 96374; 99283; G0378; J2270; J7120

== ENCOUNTER 2018-04-24 14:20 | Emergency (ER) | payer BC ==
[2018-04-24 14:43] VITALS: BMI 31.1
[2018-04-24 15:36] LABS: SQUAMOUS EPITHIAL 1 /hpf (0-5); URINE BACTERIA RARE (<OCC); URINE BILIRUBIN NEGATIVE (NEGATIVE); URINE BLOOD NEGATIVE (NEGATIVE); URINE CLARITY CLEAR (Clear); URINE COLOR STRAW (YELLOW); URINE GLUCOSE (UA) NEG (Normal); URINE LEUKOCYTE ESTERASE TRACE Leu/uL (Negative); URINE PROTEIN NEGATIVE (NEGATIVE); URINE UROBILINOGEN 0.2-1.0 mg/dL (0.2-1.0)
--- NOTE | 2018-04-24 18:16 | OBHP ---
Datetime: 04/24/2018 14:45 IP Adm Impression: , intrauterine ; No Active Labor IP Admit Plan: Observation/Evaluation Admit Comment, IP Provider: 28yo IUP at 22w c/o wet feeling for months. she felt more after straining when she urinated today. No CTX; No VB. +FM. Sometimes vaginal brning but unsure She mentioned her symtpoms to her OB two days ago but she had no other symptoms care; Dr Machado - chart rev'd POBGYNH: spont abx 1; x2 Ovarian cystectomy STD Hx HSV PMH: denies PSH: ovarian cyst; tonsillectomy NKA PsoH: deneis smoking ETOH drugs PFH; denies A: IUP at 22w no evidence of ROM Prob UTI/candidal vaginitis PLAN: check MIKA and UA Extremities - PN: Normal Abdomen - PN: Normal Back - PN: Normal Thyroid - PN: Normal Neurologic - PN: Normal HEENT - PN: Normal General - PN: Normal FHR - Baseline A Provider: 148 Comments, ACOG Physical Exam: SSE: white/yellow discharge thick curdy Pool Provider: Negative Nitrazine Provider: Negative IP Hx Assessment: The History has been Reviewed and is Current EGA AdmitDate IP: 22.0 IP Chief Complaint: Suspected ruptured membranes Dilatation, Provider: 0 Genitourinary Exam: Normal
--- NOTE | 2018-04-24 18:18 | OBDCSUM ---
Datetime: 04/24/2018 18:05 Discharged to, Provider: Home Follow up at, Provider: Dr Serrano Disch Instr Activity: Normal activity Disch Instr Diet: Regular Discharge Time: 04/24/2018 18:06 Follow up in weeks, Provider: as per schedule Disch Referrals: None Disch Activity Restrictions: No exercising; No lifting; No driving; Nothing in vagina - [place], tampons, douche Discharge Comment, Provider: Terazol 7 and Cephalexin 500mg TID x 7d Discharge Diagnosis Prov Other: UTI and candidal vaginitis
--- NOTE | 2018-04-24 18:26 | US ---
Date of service: 04/24/18 OB , limited Indication: Measure MIKA/dating Comparison: Transvaginal ultrasound performed 05/09/17 Technique: Real-time ultrasound was performed through the pelvis. Findings: There is a single living fetus in transverse presentation. MIKA measures 16.7 cm, within normal limits. Posterior placenta. The placenta is not previa. Bilateral ovaries were not identified, per provided history the patient is undergone right oophorectomy. There are no adnexal masses or cysts evident. Cervix length measures approximately 4.6 cm. Measurements and calculations: Fetus has a composite sonographic age of 22 weeks 0 days. This calculation is based on the biparietal diameter, head circumference, abdominal circumference, and femur length. Estimated heart rate 139 beats per min. Impression: Single living fetus with a composite sonographic age of 22 weeks 0 days. Estimated heart rate 139 beats per min. The study was performed for emergent evaluation and the whole anatomic survey of the fetus was not performed. This should be performed on an outpatient elective basis as clinically warranted.
[2018-04-28 22:42] VITALS: BP 98/64; PULSE 63
== END 2018-04-24 18:15 | disposition home or self-care (01) ==
LOC: H.EROB2 14:20
DX: O34.62 Maternal care for abnormality of vagina, second trimester (principal); N89.8 Other specified noninflammatory disorders of vagina; Z3A.22 22 weeks gestation of pregnancy

== ENCOUNTER 2018-08-28 06:19 | Inpatient (IN) | payer BC ==
[2018-08-28 07:14] VITALS: BMI 34.9
[2018-08-28] MEDS ORDERED: Lactated Ringer's 1,000 ML IV ONE (07:14)
[2018-08-28] MEDS ORDERED: Lactated Ringer's 1,000 ML IV SCH ×2 (07:15→07:30)
[2018-08-28] MEDS ORDERED: Fentanyl/Bupivacaine HCl 250 ML EPI ONE (07:34)
[2018-08-28 08:49] LABS: BASO # 0.1 K/uL (0.0-0.2); BASO % 0.6 % (0.0-2.0); EOS # 0.1 K/uL (0.0-0.7); LYMPH # 2.1 K/uL (1.0-4.3); LYMPH % 16.8 % (20.0-40.0); MEAN CELL VOLUME 89.4 fl (81.0-99.0); MEAN CORPUSCULAR HEMOGLOBIN 30.1 pg (27.0-31.0); MEAN CORPUSCULAR HGB CONC 33.6 g/dL (33.0-37.0); MONO # 0.7 K/uL (0.0-0.8); MONO % 5.4 % (0.0-10.0); NEUT # 9.5 K/uL (1.8-7.0); NEUT % 76.2 % (50.0-75.0); RBC 4.31 Mil/uL (3.80-5.20); RED CELL DISTRIBUTION WIDTH 14.7 % (11.5-14.5); WHITE BLOOD COUNT 12.4 K/uL (4.8-10.8)
[2018-08-28] MEDS ORDERED: Oxytocin 30 UNIT 30 UNITS/500 ML BAG IV ONE ×2 (10:42→16:23)
[2018-08-28] MEDS ORDERED: ePHEDrine 50 mg/ml Inj ONE (11:55)
--- NOTE | 2018-08-28 12:09 | OBADHP ---
Datetime: 08/28/2018 10:20 Presentation-Admit: Vertex FHR - Baseline A Provider: 120 Amniotic Fluid Color, Provider: Clear Membranes, Provider: Ruptured Contraction Comments Provider: Q6-8 min Gestation - Est Wks by US: 40.0 Vital Signs Provider: Reviewed; Within Normal Limits NICHD Variability Prov Fetus A: Moderate 6-25bpm NICHD Accel Fetus A IP Provider: [id number] FHR Category Provider Fetus A: Category I NICHD Decel Fetus A IP Provider: None Dilatation, Provider: 4 Effacement, Provider: 80 Station, Provider: -1 Datetime: 08/28/2018 06:30 Pelvic Type - PN: Adequate Extremities - PN: Normal Abdomen - PN: Normal Back - PN: Not Done Breast - PN: Not Done Lungs - PN: Normal Heart - PN: Normal Thyroid - PN: Not Done Neurologic - PN: Not Done HEENT - PN: Not Done General - PN: Normal IP Hx Assessment: The History has been Reviewed and is Current IP Chief Complaint: Uterine contractions Genitourinary Exam: Not Done DTRs - PN: Not Done EGA AdmitDate IP: 40.0 IP Adm Impression: Term, intrauterine ; Active labor IP Admit Plan: Admit to unit; Initiate labor protocol Datetime: 08/28/2018 06:00 Admit Comment, IP Provider: 28 y/o IUP at 40.0 wk GA c/o painful contractions every 10 mins, which began at 2AM. She denies VFL/VB. She endorses movement. She denies chest pain, SOB, he adache, visual changes, urinary symptoms. OB: Dr. Serrano POBGYNH: spont abx 1; x2 Ovarian cystectomy STD Hx HSV PMH: denies PSH: ovarian cyst; tonsillectomy Allergies: NKDA PsoH: deniies smoking/ ETOH /drugs PFH: denies ROS negative except per HPI Physical Exam: Gen: appears comfortable, NAD Heart: S1S2, RRR Lungs: normal resp effort, clear to auscultation bilaterally Abd: Gravid, soft, non-tender, normal BS Extremities: No erythema, swelling, tenderness SVE: 4cm, 90%, -3 Assessment and Plan 28 y/o IUP at 40.0 wk GA c/o painful contractions GBS neg, HIV neg, RPR neg, Rubella immune, GC/C neg SVE: 4 cm dilated, 90% effaced -3 stations, regular contractions on toco q10 mins Admit patient to L_D CBC and type and screen 1L LR IV bolus and 2L LR IV @125mL/hr Can have epidural, anesthesiology consulted NPO NST FHR and toco monitoring Case discussed w/ attending Deyanira Schmitz pgyi Datetime: 04/24/2018 14:45 Comments, ACOG Physical Exam: SSE: white/yellow discharge thick curdy Pool Provider: Negative Nitrazine Provider: Negative
[2018-08-28] MEDS ORDERED: Oxycodone/Acetaminophen 5/325 mg Tab PO PRN ×4 (16:01→17:32)
[2018-08-28] MEDS ORDERED: Benzocaine/Menthol SPRAY TOP PRN ×2 (16:01→17:32)
--- NOTE | 2018-08-28 16:37 | OBDS ---
DELIVERY PERSONNEL Delivery Doctor: Valerie Stout DO Dovetailer: Wanda Henry RN Anesthesiologist: Pily Lane MD Resident: Dr Caldera OB FELLOW MATERNAL INFORMATION Delivery Anesthesia: Epidural Medications in Delivery: PITOCIN Estimated Blood Loss (ml): 100 Placenta Cultured: No Maternal Complications: None Provider Comments: 28 year old at 40.0 admitted for spontaneous labor. Progressed to normal spo ntaneous vaginal delivery after pitocin augmentation, live female infact, position GUERDA over intact pe rineum with epidural anesthesia. Infant was placed on maternal abdomen and delayed cord clamping were performed. Apgras 9 _ No meconium or nuchal cord. Spontaneous delivery of placenta. First degree lac eration. QBL 100cc. Bianca Caldera MD OB Fellow OB Hospitalist on-call. I attended . SAENDO LABOR SUMMARY EDC: 08/28/2018 00:00 No. Babies in Womb: 1 Attempted: No Labor Anesthesia: Epidural LABOR INFORMATION Reason for Induction: Not Applicable Onset of Labor: 08/28/2018 12:00 Complete Dilatation: 08/28/2018 13:45 Cervical Ripening Agents: Other Oxytocin: Augmentation Group B Beta Strep: Negative Antibiotics # of Doses: 0 Antibiotics Time of Last Dose: 0 Steroids Given: None Reason Steroids Not Administered: Not Applicable MEMBRANES Membranes Rupture Method: Artificial Rupture of Membranes: 08/28/2018 10:16 Length of Rupture (hrs): 3.68 Amniotic Fluid Color: Clear Amniotic Fluid Amount: Small Amniotic Fluid Odor: Normal STAGES OF LABOR Stage 1 hrs: 1 Stage 1 min: 45 Stage 2 hrs: 0 Stage 2 min: 12 Stage 3 hrs: 0 Stage 3 min: 3 Total Time in Labor hrs: 2 Total Time in Labor min: 0 VAGINAL DELIVERY Episiotomy: None Laceration Extension: First Degree Laceration Type: Perineal Laceration Repair: Yes Laceration Repair Note: A 2-0 Vicryl was used to repair the laceration in the usual fashion. Hemosta sis was adequate after repair. Initial Vag Sponge Count: 10 Final Vag Sponge Count: 10 Initial Vag Sharps Count: 0 Final Vag Sharps Count: 1 Sponge Count Correct: Yes Sharps Count Correct: Yes BABY A INFORMATION Infant Delivery Date/Time: 08/28/2018 13:57 Method of Delivery: Vaginal Born in Route : No : N/A Forceps: N/A Vacuum Extraction: N/A Shoulder Dystocia : No SHOULDER DYSTOCIA BABY A Delivery Date/Time: 08/28/2018 13:57 PRESENTATION/POSITION BABY A Presentation: Cephalic Cephalic Presentation: Vertex Breech Presentation: N/A PLACENTA INFORMATION BABY A Placenta Delivery Time : 08/28/2018 14:00 Placenta Method of Delivery: Spontaneous Placenta Status: Delivered SCORES BABY A Heart Rate 1 min: >100 bpm Resp Effort 1 min: Good Cry Reflex Irritability 1 min: Cough or Sneeze or Pulls Away Muscle Tone 1 min: Active Motion Color 1 min: Body [place], Extremities Blue SCORE 1 MIN: 9 Heart Rate 5 min: >100 bpm Resp Effort 5 min: Good Cry Reflex Irritability 5 min: Cough or Sneeze or Pulls Away Muscle Tone 5 min: Active Motion Color 5 min: Body [place], Extremities Blue SCORE 5 MIN: 9 INFANT INFORMATION BABY A Gestational Age at Delivery: 40.0 Gestational Status: Term Infant Outcome : Liveborn Infant Condition : Stable Infant Sex: Female IDENTIFICATION/MEDS BABY A ID Band Number: [id number] ID Band Location: Left Leg; Left Arm WEIGHT/LENGTH BABY A Infant Birthweight (gms): 3450 Weight (lb): 7 Infant Weight (oz): 10 Length Inches: 18.70 Length cms: 47.5 CORD INFORMATION BABY A No. Cord Vessels: 3 Nuchal Cord : N/A Nuchal Cord Other: N/A True Knot: 0 Cord Blood Taken: Yes Suction: Mouth; Nose
--- NOTE | 2018-08-30 10:07 | OBPPN ---
Datetime: 08/29/2018 10:03 PP Pain Prov: Within normal limits PP Nausea Prov: Denies PP Flatus Prov: Yes PP BM Prov: Yes PP Breasts Prov: Normal PP Heart Prov: Normal PP Lungs Prov: Normal PP Abdomen/Uterus Prov: Normal PP Lochia Prov: Normal PP Vulva/Perineum Prov: Normal PP CVA Tenderness Prov: Normal PP Extremities Prov: Normal PP C/S Incision Prov: Not Applicable PP Progress Prov: Normal PP Comments Phys Exam Prov: Abd soft/NT/ND Uter firm bel umb No DCT bilat PP Progress Note Prov: PPD#1 s/p , recovering well Cont current management, anticipate d/c home bala Vital Signs Provider PP: Reviewed; Within Normal Limits
--- NOTE | 2018-08-30 11:07 | OBPPN ---
Datetime: 08/30/2018 11:05 PP Pain Prov: Within normal limits PP Nausea Prov: Denies PP Flatus Prov: Yes PP BM Prov: Yes PP Breasts Prov: Normal PP Heart Prov: Normal PP Lungs Prov: Normal PP Abdomen/Uterus Prov: Normal PP Lochia Prov: Normal PP Vulva/Perineum Prov: Normal PP CVA Tenderness Prov: Normal PP Extremities Prov: Normal PP Impression Prov: Normal progression PP Plan Prov: Discharge PP Progress Note Prov: PPD #2 s/p , recovering well D/C home with istructions and precautions F/U office 6wks IP PP Procedures: None Vital Signs Provider PP: Reviewed; Within Normal Limits
--- NOTE | 2018-08-30 11:09 | OBDCSUM ---
Datetime: 08/30/2018 11:06 Discharged to, Provider: Home Follow up at, Provider: Zach Disch Instr Activity: Normal activity Disch Instr Diet: Regular Discharge Instructions, Provider: Routine instructions given Discharge Diagnosis, Provider: Term Delivered Discharge Time: 08/30/2018 11:06 Follow up in weeks, Provider: 6 weeks Disch Referrals: None Contraception discussed, Prov: Yes
[2018-08-30 21:54] VITALS: BP 118/76; PULSE 64; RESP 20; TEMP 98; O2SAT 99
== END 2018-08-30 13:11 | disposition home or self-care (01) | DRG 807 ==
LOC: H.EROB2 06:19 → H.L&D 07:15 → H.OB/GYN 17:10
PROVIDERS: ADMIT Obstetrics & Gynecology; ATTEND Obstetrics & Gynecology
PROC: 10E0XZZ Delivery of Products of Conception, External Approach (ICD-10-PCS; principal; 2018-08-28)
PROC: 0HQ9XZZ Repair Perineum Skin, External Approach (ICD-10-PCS; 2018-08-28)
PROC: 4A1HXCZ Monitoring of Products of Conception, Cardiac Rate, External Approach (ICD-10-PCS; 2018-08-28)
DX: O70.0 First degree perineal laceration during delivery (principal); Z37.0 Single live birth; Z3A.40 40 weeks gestation of pregnancy